=== PATIENT | male | born 1980 | race Caucasian/White ===

== ENCOUNTER 2021-07-12 14:22 | Inpatient (IN) | payer OTHER ==
[2021-07-12] MEDS ORDERED: BISMUTH SUBSALICYLATE 524 MG/30 ML PO PRN (15:13)
[2021-07-12] MEDS ORDERED: ACETAMINOPHEN 325 MG TABLET (FP) PO PRN ×2 (15:13)
[2021-07-12] MEDS ORDERED: MAGNESIUM HYDROX 2400MG/30ML ORAL SUSPENSION 30 ML CUP PO PRN (15:13)
[2021-07-12] MEDS ORDERED: MAG HYDROX/AL HYDROX/SIMETH 30 ML UNIT-DOSE CUP PO PRN (15:13)
[2021-07-12] MEDS ORDERED: MAGNESIUM CITRATE 300 ML BOTTLE PO PRN (15:13)
[2021-07-12] MEDS ORDERED: MENTHOL/PHENOL 1 EACH UD MM PRN (15:13)
[2021-07-12] MEDS ORDERED: IBUPROFEN 400 MG TABLET (FP) PO PRN (15:13)
[2021-07-12] MEDS ORDERED: NICOTINE 10 MG CARTRIDGE (INHALER) IH PRN (15:13)
[2021-07-12] MEDS ORDERED: ONDANSETRON *ODT* 4 MG TABLET SL PRN (15:13)
[2021-07-12 18:31] VITALS: BMI 62.6
[2021-07-12] MEDS ORDERED: INSULIN SLIDING SCALE (NOVOLOG) 1 VIAL SQ SCH (22:00)
[2021-07-12] MEDS: MELATONIN 5 MG TABLETS PO SCH (22:44)
[2021-07-12] MEDS: hydrOXYzine PAMOATE 25 MG CAPSULE (FP) PO SCH ×2 (22:45→22:58)
[2021-07-12] MEDS: THIAMINE HCL 100 MG TABLET (FP) PO SCH (22:45)
[2021-07-12] MEDS: PRENATAL VITAMINS W/ FOLIC ACID TABLET (FP) PO SCH (22:58)
[2021-07-12] MEDS ORDERED: INSULIN SLIDING SCALE (NOVOLOG) 1 VIAL SQ ONE (23:02)
[2021-07-13] MEDS: hydrOXYzine PAMOATE 25 MG CAPSULE (FP) PO SCH ×5 (05:54→22:44)
[2021-07-13] MEDS ORDERED: cloNIDine HCL 0.1 MG TABLET PO PRN (09:36)
[2021-07-13] MEDS ORDERED: methaDONE HCL 10 MG TABLET (FOR DETOX USE ONLY) PO ONE (10:00)
[2021-07-13 10:06] LABS: HEMATOCRIT 35.9 % (35.4-49); HEMOGLOBIN 12.1 GM/dL (11.7-16.9); MCH 32.1 pg (25.7-33.7); MCHC 33.8 g/dl (32.0-35.9); MEAN PLT VOLUME 10.7 fl (7.5-11.1); PLATELET COUNT 386 10^3/uL (134-434); RBC 3.77 M/mm3 (4.00-5.60); RDW 14.6 % (11.9-15.9); WHITE BLOOD COUNT 5.7 K/mm3 (4.0-10.0)
[2021-07-13] MEDS: METHOCARBAMOL 500 MG TABLET PO PRN ×2 (10:12→22:44)
[2021-07-13] MEDS: PRENATAL VITAMINS W/ FOLIC ACID TABLET (FP) PO SCH (10:12)
[2021-07-13] MEDS: clonazePAM 0.5 MG ODT TABLETS SL PRN ×2 (10:13→22:44)
[2021-07-13 10:19] LABS: CALCIUM 9.1 mg/dL (8.5-10.1)
[2021-07-13] MEDS ORDERED: INSULIN (NOVOLOG) ASPART 100 UNITS/ML 10ML VIAL SQ ONE (10:19)
[2021-07-13 10:20] LABS: BLOOD UREA NITROGEN 6.8 mg/dL (7-18)
[2021-07-13 10:24] LABS: BILIRUBIN,TOTAL 2.5 mg/dL (0.2-1); CREATININE 0.6 mg/dL (0.55-1.3)
[2021-07-13 10:25] LABS: TOT PROT 6.6 g/dl (6.4-8.2)
[2021-07-13] MEDS ORDERED: INSULIN SLIDING SCALE (NOVOLOG) 1 VIAL SQ ONE (10:49)
[2021-07-13] MEDS: INSULIN (NOVOLOG) ASPART 100 UNITS/ML 10ML VIAL SQ SCH ×3 (12:11→22:43)
[2021-07-13] MEDS: FUROSEMIDE 40 MG TABLET (FP) PO SCH (15:40)
[2021-07-13] MEDS: SPIRONOLACTONE 25 MG TABLET PO SCH (15:41)
[2021-07-13] MEDS: GABAPENTIN 300 MG CAPSULE PO SCH ×2 (15:41→22:44)
[2021-07-13] MEDS: EZETIMIBE 10 MG TABLET (FP) PO SCH (15:42)
[2021-07-13] MEDS: LIPASE/PROTEASE/AMYLASE 6,000 UNIT CAPSULE PO SCH (18:16)
[2021-07-13] MEDS: MIRTAZAPINE 15 MG TABLET (FP) PO SCH (22:44)
[2021-07-13] MEDS: CARVEDILOL 6.25 MG TABLET (FP) PO SCH (22:44)
[2021-07-13] MEDS: MELATONIN 5 MG TABLETS PO SCH (22:44)
[2021-07-13] MEDS: THIAMINE HCL 100 MG TABLET (FP) PO SCH (22:44)
[2021-07-14] MEDS: GABAPENTIN 300 MG CAPSULE PO SCH ×2 (05:58→14:41)
[2021-07-14] MEDS: hydrOXYzine PAMOATE 25 MG CAPSULE (FP) PO SCH ×5 (05:58→22:39)
[2021-07-14] MEDS: METHOCARBAMOL 500 MG TABLET PO PRN ×2 (06:00→22:39)
[2021-07-14] MEDS ORDERED: INSULIN SLIDING SCALE (NOVOLOG) 1 VIAL SQ ONE (07:46)
[2021-07-14] MEDS: INSULIN (NOVOLOG) ASPART 100 UNITS/ML 10ML VIAL SQ SCH ×4 (07:46→22:36)
[2021-07-14] MEDS: LIPASE/PROTEASE/AMYLASE 6,000 UNIT CAPSULE PO SCH ×3 (07:47→18:30)
[2021-07-14] MEDS ORDERED: methaDONE HCL 10 MG TABLET (FOR DETOX USE ONLY) ONE (09:10)
[2021-07-14] MEDS: FUROSEMIDE 40 MG TABLET (FP) PO SCH (09:49)
[2021-07-14] MEDS: PANTOPRAZOLE 40 MG TABLET PO PRN (09:49)
[2021-07-14] MEDS: SERTRALINE HCL 50 MG TABLET (FP) PO SCH (09:49)
[2021-07-14] MEDS: PRENATAL VITAMINS W/ FOLIC ACID TABLET (FP) PO SCH (09:50)
[2021-07-14] MEDS: EZETIMIBE 10 MG TABLET (FP) PO SCH (09:51)
[2021-07-14] MEDS: SPIRONOLACTONE 25 MG TABLET PO SCH (09:51)
[2021-07-14] MEDS: CARVEDILOL 6.25 MG TABLET (FP) PO SCH ×2 (09:53→23:45)
[2021-07-14] MEDS ORDERED: FUROSEMIDE 20 MG TABLET (FP) PO SCH (14:56)
[2021-07-14] MEDS: diazePAM 5 MG TABLET PO PRN ×2 (18:29→22:39)
[2021-07-14] MEDS: GABAPENTIN 300 MG CAPSULE PO PRN (22:39)
[2021-07-14] MEDS: MIRTAZAPINE 15 MG TABLET (FP) PO SCH (22:39)
[2021-07-14] MEDS: THIAMINE HCL 100 MG TABLET (FP) PO SCH (22:39)
[2021-07-14] MEDS: MELATONIN 5 MG TABLETS PO SCH (22:40)
[2021-07-15] MEDS: diazePAM 5 MG TABLET PO PRN ×3 (05:48→22:15)
[2021-07-15] MEDS: hydrOXYzine PAMOATE 25 MG CAPSULE (FP) PO SCH ×5 (05:48→22:14)
[2021-07-15] MEDS: LIPASE/PROTEASE/AMYLASE 6,000 UNIT CAPSULE PO SCH ×3 (07:37→17:25)
[2021-07-15] MEDS: INSULIN (NOVOLOG) ASPART 100 UNITS/ML 10ML VIAL SQ SCH ×4 (07:38→22:17)
[2021-07-15] MEDS ORDERED: methaDONE HCL 10 MG TABLET (FOR DETOX USE ONLY) PO ONE (10:00)
[2021-07-15] MEDS: PANTOPRAZOLE 40 MG TABLET PO PRN (10:51)
[2021-07-15] MEDS: METHOCARBAMOL 500 MG TABLET PO PRN ×2 (10:52→22:14)
[2021-07-15] MEDS: SERTRALINE HCL 50 MG TABLET (FP) PO SCH (10:52)
[2021-07-15] MEDS: PRENATAL VITAMINS W/ FOLIC ACID TABLET (FP) PO SCH (10:52)
[2021-07-15] MEDS: SPIRONOLACTONE 25 MG TABLET PO SCH (10:52)
[2021-07-15] MEDS: EZETIMIBE 10 MG TABLET (FP) PO SCH (10:54)
[2021-07-15] MEDS: FUROSEMIDE 20 MG TABLET (FP) PO SCH (10:55)
[2021-07-15] MEDS: CARVEDILOL 6.25 MG TABLET (FP) PO SCH ×2 (10:56→22:14)
[2021-07-15] MEDS ORDERED: INSULIN SLIDING SCALE (NOVOLOG) 1 VIAL SQ ONE (17:17)
[2021-07-15] MEDS: MIRTAZAPINE 15 MG TABLET (FP) PO SCH (22:14)
[2021-07-15] MEDS: THIAMINE HCL 100 MG TABLET (FP) PO SCH (22:14)
[2021-07-15] MEDS: MELATONIN 5 MG TABLETS PO SCH (22:14)
[2021-07-16] MEDS: hydrOXYzine PAMOATE 25 MG CAPSULE (FP) PO SCH ×5 (07:17→21:40)
[2021-07-16] MEDS: LIPASE/PROTEASE/AMYLASE 6,000 UNIT CAPSULE PO SCH ×3 (07:35→17:25)
[2021-07-16] MEDS: INSULIN (NOVOLOG) ASPART 100 UNITS/ML 10ML VIAL SQ SCH ×4 (07:35→21:43)
[2021-07-16] MEDS ORDERED: methaDONE HCL 10 MG TABLET (FOR DETOX USE ONLY) ONE (09:04)
[2021-07-16] MEDS: CARVEDILOL 6.25 MG TABLET (FP) PO SCH ×2 (10:49→21:40)
[2021-07-16] MEDS: FUROSEMIDE 20 MG TABLET (FP) PO SCH (10:49)
[2021-07-16] MEDS: SERTRALINE HCL 50 MG TABLET (FP) PO SCH (10:49)
[2021-07-16] MEDS: PRENATAL VITAMINS W/ FOLIC ACID TABLET (FP) PO SCH (10:50)
[2021-07-16] MEDS: EZETIMIBE 10 MG TABLET (FP) PO SCH (10:50)
[2021-07-16] MEDS: SPIRONOLACTONE 25 MG TABLET PO SCH (10:50)
[2021-07-16] MEDS ORDERED: INSULIN SLIDING SCALE (NOVOLOG) 1 VIAL SQ ONE (17:09)
[2021-07-16] MEDS: diazePAM 5 MG TABLET PO PRN ×2 (17:25→21:40)
[2021-07-16] MEDS: MELATONIN 5 MG TABLETS PO SCH (21:40)
[2021-07-16] MEDS: THIAMINE HCL 100 MG TABLET (FP) PO SCH (21:40)
[2021-07-16] MEDS: MIRTAZAPINE 15 MG TABLET (FP) PO SCH (21:40)
[2021-07-16] MEDS: GABAPENTIN 300 MG CAPSULE PO PRN (21:40)
[2021-07-17] MEDS: hydrOXYzine PAMOATE 25 MG CAPSULE (FP) PO SCH ×5 (06:58→21:56)
[2021-07-17] MEDS: METHOCARBAMOL 500 MG TABLET PO PRN (07:47)
[2021-07-17] MEDS: diazePAM 5 MG TABLET PO PRN ×3 (07:47→21:55)
[2021-07-17] MEDS: INSULIN (NOVOLOG) ASPART 100 UNITS/ML 10ML VIAL SQ SCH ×4 (07:49→21:53)
[2021-07-17] MEDS: LIPASE/PROTEASE/AMYLASE 6,000 UNIT CAPSULE PO SCH ×3 (07:50→17:10)
[2021-07-17] MEDS ORDERED: methaDONE HCL 10 MG TABLET (FOR DETOX USE ONLY) PO ONE (10:00)
[2021-07-17] MEDS: CARVEDILOL 6.25 MG TABLET (FP) PO SCH ×2 (10:30→21:56)
[2021-07-17] MEDS: FUROSEMIDE 20 MG TABLET (FP) PO SCH (10:30)
[2021-07-17] MEDS: SPIRONOLACTONE 25 MG TABLET PO SCH (10:30)
[2021-07-17] MEDS: PRENATAL VITAMINS W/ FOLIC ACID TABLET (FP) PO SCH (10:31)
[2021-07-17] MEDS: SERTRALINE HCL 50 MG TABLET (FP) PO SCH (10:33)
[2021-07-17] MEDS: EZETIMIBE 10 MG TABLET (FP) PO SCH (10:35)
[2021-07-17] MEDS ORDERED: INSULIN SLIDING SCALE (NOVOLOG) 1 VIAL SQ ONE ×3 (11:53→17:14)
[2021-07-17] MEDS: PANTOPRAZOLE 40 MG TABLET PO PRN (14:35)
[2021-07-17] MEDS: MIRTAZAPINE 15 MG TABLET (FP) PO SCH (21:56)
[2021-07-17] MEDS: MELATONIN 5 MG TABLETS PO SCH (21:56)
[2021-07-17] MEDS: THIAMINE HCL 100 MG TABLET (FP) PO SCH (21:56)
[2021-07-17] MEDS: GABAPENTIN 300 MG CAPSULE PO PRN (21:56)
[2021-07-18] MEDS: LIPASE/PROTEASE/AMYLASE 6,000 UNIT CAPSULE PO SCH (06:08)
[2021-07-18] MEDS: hydrOXYzine PAMOATE 25 MG CAPSULE (FP) PO SCH ×2 (06:10→07:36)
[2021-07-18] MEDS: INSULIN (NOVOLOG) ASPART 100 UNITS/ML 10ML VIAL SQ SCH (06:52)
[2021-07-18 08:57] VITALS: BP 109/69; PULSE 77; TEMP 97.1
== END 2021-07-18 09:30 | disposition other institution (70) | DRG 897 ==
LOC: YASAS 14:22 → Y3N 20:19
PROVIDERS: ADMIT Allergy & Immunology; ATTEND Allergy & Immunology
PROC: HZ2ZZZZ Detoxification Services for Substance Abuse Treatment (ICD-10-PCS; principal; 2021-07-12)
DX: F11.23 Opioid dependence with withdrawal (principal); F17.210 Nicotine dependence, cigarettes, uncomplicated; F19.24 Other psychoactive substance dependence with psychoactive substance-induced mood disorder; G47.00 Insomnia, unspecified; K74.60 Unspecified cirrhosis of liver; E11.65 Type 2 diabetes mellitus with hyperglycemia; Z79.4 Long term (current) use of insulin; Z96.41 Presence of insulin pump (external) (internal); G89.4 Chronic pain syndrome; R74.8 Abnormal levels of other serum enzymes; Z86.59 Personal history of other mental and behavioral disorders
CPT/HCPCS: 36415; 80053; 82962; 85027; 86780; C9803; U0003; U0005